=== PATIENT | female | born 1955 | race Two or more races ===

== ENCOUNTER 2019-02-24 18:34 | Emergency (ER) | payer MEDICAID, OTHER ==
[~2019-02-24] VITALS: Ht 160 cm; Wt 82.6 kg
[2019-02-24 19:00] VITALS: BP 165/75
== END 2019-02-24 22:14 | disposition left against medical advice (07) ==
LOC: ER 18:34
DX: R05 Cough (principal); Z53.21 Procedure and treatment not carried out due to patient leaving prior to being seen by health care provider
CPT/HCPCS: 71045

== ENCOUNTER 2019-02-25 08:17 | Emergency (ER) | payer MEDICARE, OTHER ==
[~2019-02-25] VITALS: Ht 160 cm; Wt 82.6 kg
[2019-02-25 08:26] VITALS: BP 135/59
[2019-02-25] MEDS ORDERED: cefTRIAXone SOD 1,000 MG VL IM ONE (10:15)
== END 2019-02-25 10:37 | disposition home or self-care (01) ==
LOC: ER 08:17
DX: J20.9 Acute bronchitis, unspecified (principal); J03.90 Acute tonsillitis, unspecified
CPT/HCPCS: 96372; 99283; J0696